=== PATIENT | male | born 1955 | race Caucasian/White ===

== ENCOUNTER 2021-05-18 15:44 | Outpatient (REF) | payer MEDICARE, SELFPAY ==
--- NOTE | ~2021-05-18 | XR_ITS ---
EXAMINATION: XR KNEE, RIGHT XR KNEE, LEFT CLINICAL INFORMATION: Bilateral knee pain. COMPARISON: Radiographs of the right and left knee from 08/14/2018 TECHNIQUE: Right knee, 4 views Left knee, 4 views FINDINGS: Right knee: Chronic tricompartmental osteoarthritis is present. Interval development of severe joint space loss of the medial tibiofemoral compartment with ghou-ug-[id number] contact, subarticular sclerosis and osteophytosis. 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 The osteoarthritic changes are mild at the lateral tibiofemoral compartment and [id number] at the patellofemoral compartment. No joint effusion. Left knee: Chronic tricompartmental osteoarthritis is present. Findings include chronic, severe loss of the medial tibiofemoral joint space with pefk-zx-jyyn contact, subarticular sclerosis and osteophytosis. 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 The osteoarthritis is mild at the lateral tibiofemoral compartment and moderate at the patellofemoral compartment. No joint effusion. XR/XR knee RT 4V IMPRESSION: Chronic tricompartmental osteoarthritis of both knees. 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 There is progressive joint space loss of the medial compartment of the right knee compared to 08/14/2018.
--- NOTE | ~2021-05-18 | XR_ITS ---
EXAMINATION: XR HIP, RIGHT CLINICAL INFORMATION: Right hip pain COMPARISON: None TECHNIQUE: Two views of the right hip. FINDINGS: The femoral head is well-positioned within the intact acetabulum. There appear to be small osteophytes at the right hip. There is mild narrowing of the superior joint space. No evidence of proximal femoral fracture or osteonecrosis. No focal lytic or blastic bone lesion. XR/XR hip RT min 2V IMPRESSION: Mild osteoarthritis of the right hip.
--- NOTE | ~2021-05-18 | US_ITS ---
EXAMINATION: US VENOUS ULTRASOUND WITH DOPPLER LOWER EXTREMITY, LEFT CLINICAL INFORMATION: Acute embolism and thrombosis. Pain along the lateral and posterior aspect of left hip. COMPARISON: None TECHNIQUE: Ultrasound of the deep veins is performed from the hip to the calf with compression sonography and color and pulse Doppler assessment. Spectral analysis with color-flow imaging is performed. FINDINGS: There is normal venous compression and respiratory variation and augmented flow. The visualized common femoral vein, superficial femoral vein, profunda femoral vein, popliteal vein, and the trifurcation region shows no evidence of deep venous thrombosis. There is no significant popliteal fossa cyst. If the patient's symptoms persist, follow-up ultrasound in 5 days 7 days might be of value to exclude proximal propagation from a nonvisualized calf vein. US/US venous duplex LE IMPRESSION: No DVT demonstrated in the left lower extremity.
--- NOTE | ~2021-05-18 | XR_ITS ---
EXAMINATION: XR KNEE, RIGHT XR KNEE, LEFT CLINICAL INFORMATION: Bilateral knee pain. COMPARISON: Radiographs of the right and left knee from 08/14/2018 TECHNIQUE: Right knee, 4 views Left knee, 4 views FINDINGS: Right knee: Chronic tricompartmental osteoarthritis is present. Interval development of severe joint space loss of the medial tibiofemoral compartment with [id number] contact, subarticular sclerosis and osteophytosis. 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 The osteoarthritic changes are mild at the lateral tibiofemoral compartment and [id number] at the patellofemoral compartment. No joint effusion. Left knee: Chronic tricompartmental osteoarthritis is present. Findings include chronic, severe loss of the medial tibiofemoral joint space with ccvz-uh-bbir contact, subarticular sclerosis and osteophytosis. 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 The osteoarthritis is mild at the lateral tibiofemoral compartment and moderate at the patellofemoral compartment. No joint effusion. XR/XR knee LT 4V IMPRESSION: Chronic tricompartmental osteoarthritis of both knees. 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 There is progressive joint space loss of the medial compartment of the right knee compared to 08/14/2018.
== END 2021-05-18 15:45 | disposition home or self-care (01) ==
LOC: HO.US 15:44
PROVIDERS: PCP Internal Medicine Geriatric Medicine; Visit Provider Internal Medicine Geriatric Medicine
DX: M25.551 Pain in right hip (principal); M25.561 Pain in right knee; M25.562 Pain in left knee; I82.461 Acute embolism and thrombosis of right calf muscular vein
CPT/HCPCS: 73502; 73564; 93971